=== PATIENT | female | born 1990 ===

== ENCOUNTER 2022-02-02 00:41 | Inpatient (IN) | payer SELFPAY ==
[2022-02-02] MEDS ORDERED: miSOPROStol 200 MCG TAB PR PRN ×2 (01:58→02:09)
[2022-02-02] MEDS ORDERED: OXYTOCIN DRIP 30 UNITS/500 ML BAG IV SCH ×3 (01:58→03:00)
[2022-02-02] MEDS ORDERED: MINERAL OIL 30 ML ORAL LIQD PO PRN ×2 (01:58→02:09)
[2022-02-02] MEDS ORDERED: METHYLERGONOVINE MALEATE 0.2 MG/ML VIAL IM PRN ×2 (01:58→02:09)
[2022-02-02] MEDS ORDERED: LOPERAMIDE 2 MG CAP PO PRN ×2 (01:58→02:09)
[2022-02-02] MEDS ORDERED: OXYTOCIN 10 UNIT/1 ML INJ IM PRN ×2 (01:58→02:09)
[2022-02-02] MEDS ORDERED: CARBOPROST TROMETHAMINE 250 MCG/1 ML INJ IM PRN ×2 (01:58→02:09)
[2022-02-02] MEDS ORDERED: LACTATED RINGERS 1,000 ML IV SCH ×2 (01:58→02:15)
[2022-02-02] MEDS ORDERED: ePHEDrine SULFATE 50 MG/1 ML INJ IV PRN ×2 (01:58→02:09)
[2022-02-02] MEDS ORDERED: TERBUTALINE 1 MG/1 ML INJ SUB-Q PRN ×2 (01:58→02:09)
[2022-02-02 02:48] LABS: Hematocrit 34.4 % (30.3-42.9); Hemoglobin 11.6 gm/dl (10.1-14.3); Mean Corpuscular HGB Conc 34 % (30-34); Mean Corpuscular Volume 95 fl (79-97); Platelet Count 164 K/mm3 (140-440); Red Blood Count 3.62 M/mm3 (3.65-5.03); Red Cell Distribution Width 13.2 % (13.2-15.2)
[2022-02-02 02:59] LABS: Hepatitis B Surface Antigen Non-Reactive (Negative); Hepatitis C Virus Antibody Non-Reactive (NonReactive)
--- NOTE | 2022-02-02 04:37 | History and Physical Report ---
History of Present Illness Date of examination: 02/02/22 Date of admission: 02/02/2022 Chief complaint: I'M having contractions History of present illness: 32 y/o A1 presents to Labor and delivery in active labor. She had care at [facility], no records are available. She was 5cm in triage with Srom at 0300. Past History Past Medical History: no pertinent history Past Surgical History: no surgical history Family/Genetic History: none Social history: no significant social history - Obstetrical History Expected Date of Delivery: 02/02/22 Actual Gestation: 40 Week(s) 0 Day(s) : 5 Para: 3 Spontaneous Abortions: 1 Number of Living Children: 3 Medications and Allergies Allergies Allergy/AdvReac Type Severity Reaction Status Date / Time No Known Allergies Allergy Unverified 02/02/22 01:30 Active Meds: Active Medications Carboprost Tromethamine (Carboprost Tromethamine 250 Mcg/1 Ml Inj) 250 mcg IM ONCE PRN PRN Reason: Uterine Bleeding Ephedrine Sulfate (Ephedrine Sulfate 50 Mg/1 Ml Inj) 10 mg IV Q2M PRN PRN Reason: Hypotension Lactated Ringer's (Lactated Ringers) 1,000 mls @ 125 mls/hr IV DIRECT OH Last Admin: 02/02/22 02:41 Dose: 125 mls/hr Oxytocin/Sodium Chloride (Pitocin/Ns 30 Unit/500ml) 30 units in 500 mls @ 40 mls/hr IV TITR OH; Protocol Loperamide HCl (Loperamide 2 Mg Cap) 2 mg PO ONCE PRN PRN Reason: give with Hemabate Methylergonovine Maleate (Methylergonovine Maleate 0.2 Mg/Ml Vial) 0.2 mg IM ONCE PRN PRN Reason: Uterine Bleeding Mineral Oil (Mineral Oil 30 Ml Oral Liqd) 30 ml PO QHS PRN PRN Reason: Constipation Misoprostol (Misoprostol 200 Mcg Tab) 800 mcg AK ONCE PRN PRN Reason: Uterine Bleeding Oxytocin (Oxytocin 10 Unit/1 Ml Inj) 10 unit IM ONCE PRN PRN Reason: Uterine Bleeding Terbutaline Sulfate (Terbutaline 1 Mg/1 Ml Inj) 0.25 mg SUB-Q ONCE PRN PRN Reason: Hyperstimulation/Hypertonicity Review of Systems All systems: negative - Vital Signs Vital signs: Vital Signs Temp 98.5 F 02/02/22 01:30 Temp Pulse Resp BP Pulse Ox 98.7 F 90 18 123/80 98 02/02/22 03:16 02/02/22 04:31 02/02/22 03:16 02/02/22 03:16 02/02/22 04:31 - Physical Exam Breasts: Positive: deferred Cardiovascular: Regular rate Lungs: Positive: Clear to auscultation Abdomen: Positive: soft Genitourinary (Female): Positive: normal external genitalia Vulva: both: normal Vagina: Positive: normal moisture Uterus: Positive: enlarged Adnexa: both: normal Anus/Rectum: Positive: normal perianal skin Deep Tendon Reflex Grade: Normal +2 - Obstetrical FHR: category 1 Uterine Contraction Monitor Mode: External Cervical Dilatation: 5 Uterine Contraction Pattern: Regular Uterine Contraction Intensity: Moderate Results Result Diagrams: 02/02/22 01:51 Abnormal lab results 02/02/22 Range/Units 01:51 WBC 11.5 H (4.5-11.0) K/mm3 RBC 3.62 L (3.65-5.03) M/mm3 All other labs normal. Assessment and Plan A: Active labor at 40 weeks P: Expect
--- NOTE | 2022-02-02 04:42 | Procedure Note ---
OB Delivery Note - Delivery Date of Delivery: 02/02/22 Surgeon: MYRA MCKEON Estimated blood loss: 100cc - Vaginal Delivery presentation: vertex Delivery position: OA Intrapartum events: meconium Delivery induction: none Delivery monitor: external FHT, external uterine Route of delivery: Delivery placenta: spontaneous Delivery cord: nuchal cord Episiotomy: none Delivery laceration: none Anesthesia: none Delivery comments: of a viable male 6# 15oz @ 0417 over intact perineum by RN. Nuchal cord x 1 reduced. Light meconium noted. Placenta delivered 3VCI by hand splitter. 8/9. FF @ U-2. Mother and baby doing well. - Infant A at 1 minute: 8 at 5 minutes: 9 Gender: Male
[2022-02-02] MEDS ORDERED: WITCH HAZEL/ GLYCERIN PAD TP PRN (06:15)
[2022-02-02] MEDS ORDERED: ACETAMINOPHEN 325 MG TAB PO PRN (06:15)
[2022-02-02] MEDS ORDERED: oxyCODONE /ACETAMINOPHEN 5-325MG TAB PO PRN (06:15)
[2022-02-02] MEDS ORDERED: LANOLIN/ZINC/DIMETHICONE (LANSINOH) 7 GM TP PRN (06:15)
[2022-02-02] MEDS ORDERED: diphenhydrAMINE 25 MG CAP PO PRN (06:15)
[2022-02-02] MEDS: IBUPROFEN 800 MG TAB PO SCH ×2 (14:18→17:58)
[2022-02-02 20:14] LABS: Hematocrit 31.8 % (30.3-42.9); Hemoglobin 10.5 gm/dl (10.1-14.3)
[2022-02-03] MEDS: IBUPROFEN 800 MG TAB PO SCH ×2 (05:38→09:28)
--- NOTE | 2022-02-03 12:58 | Discharge Summary ---
Providers - Providers Date of Admission: 02/02/22 04:00 Date of discharge: 02/03/22 (1130) Attending physician: CLARE Aguiar MD Primary care physician: CLARE GARAY Hospitalization Reason for admission: active labor Delivery: Episiotomy: none Laceration: none Other procedures: none complications: none Discharge diagnosis: IUP at term delivered baby: male Condition at discharge: Good Disposition: 01 HOME / SELF CARE / HOMELESS Plan - Discharge Medications Prescriptions: Ibuprofen [Motrin 800 MG tab] 800 mg PO Q8HR #30 tablet - Provider Discharge Summary Activity: no sex for 6 weeks, no heavy lifting 4 weeks, no strenuous exercise Diet: routine Instructions: routine Additional instructions: [] Smoking cessation referral if applicable(refer to patient education folder for contact #) [] Refer to [facility] Booklet Call your doctor immediately for: * Fever > 100.5 * Heavy vaginal bleeding ( >1 pad per hour) * Severe persistent headache * Shortness of breath * Reddened, hot, painful area to leg or breast * Drainage or odor from incision. - Follow up plan Follow up: CLARE GARAY MD [Primary Care Provider] - 6 [address]eks Forms: [facility] Discharge Summary
--- NOTE | 2022-02-03 12:59 | Progress Note ---
Assessment and Plan A: PPD 1, intact Ambulating and eating P: D/c home, until then continue PP care Subjective - Subjective Date of service: 02/03/22 (0080) Principal diagnosis: Patient reports: appetite normal, pain well controlled, ambulating normally : doing well, bottle feeding Objective - Vital Signs Latest vital signs: Vital Signs Temp Pulse Resp BP BP Pulse Ox Pulse Ox 02/03/22 10:45 97 02/03/22 07:18 98.0 F 91 H 20 103/68 97 02/03/22 00:45 98.3 F 76 20 123/64 98 02/02/22 20:34 99 02/02/22 16:55 98.4 F 85 18 110/69 97 Intake and Output 02/02/22 02/03/22 02/03/22 23:59 07:59 15:59 Intake Total 600 120 240 Balance 600 120 240 Intake: Oral 360 120 240 Intake, Free Water 240 Other: Total, Intake Amount 360 120 120 # Voids Void 1 1 1 - Exam Breasts: Present: deferred Cardiovascular: Present: Regular rate Lungs: Present: Clear to auscultation Abdomen: Present: normal appearance, soft Uterus: Present: firm, tenderness, fundal height below umbilicus Deep Tendon Reflex Grade: Normal +2
[2022-02-03 15:12] VITALS: BP 117/75
== END 2022-02-03 16:39 | disposition home or self-care (01) | DRG 807 ==
LOC: TRG 00:41 → APU 00:43 → LD 02:35 → TRG 04:00 → LD 04:00 → OB 06:42
PROVIDERS: ADMIT Obstetrics & Gynecology; ATTEND Obstetrics & Gynecology
PROC: 10E0XZZ Delivery of Products of Conception, External Approach (ICD-10-PCS; principal; 2022-02-02)
DX: O77.0 Labor and delivery complicated by meconium in amniotic fluid (principal); Z37.0 Single live birth; Z20.822 Contact with and (suspected) exposure to COVID-19; Z3A.40 40 weeks gestation of pregnancy; O69.81X0 Labor and delivery complicated by cord around neck, without compression, not applicable or unspecified
CPT/HCPCS: 36415; 80074; 85014; 85018; 85027; 86592; 86762; 86850; 86900; 86901; 87806; G0378; J2590; J7120; U0003